=== PATIENT | female | born 2000 | race Asian ===

== ENCOUNTER 2018-05-11 09:27 | Emergency (ER) | payer OTHER ==
[~2018-05-11] VITALS: Ht 167.6 cm; Wt 63.0 kg
[2018-05-11 09:31] VITALS: BP 138/89
== END 2018-05-11 10:23 | disposition home or self-care (01) ==
LOC: ED 09:27
DX: R21 Rash and other nonspecific skin eruption (principal); J45.909 Unspecified asthma, uncomplicated